=== PATIENT | male | born 1995 | race Two or more races ===

== ENCOUNTER 2017-09-19 01:58 | Emergency (ER) | payer OTHER ==
[2017-09-19 02:49] VITALS: BP 150/74; PULSE 88; TEMP 98.2; BMI 25.1
[2017-09-19] MEDS ORDERED: SULFAMETHOXAZOLE/TRIMETHOPRIM 800MG/160MG D.S. TABLET PO ONE (03:01)
[2017-09-19] MEDS ORDERED: CEPHALEXIN MONOHYDRATE 500 MG CAPSULE (UD) PO ONE (03:02)
--- NOTE | 2017-09-19 03:02 | PDOC ---
History of Present Illness - General Chief Complaint: Wound Stated Complaint: CYST ON BACK Time Seen by Provider: 09/19/17 02:33 History Source: Patient - History of Present Illness Initial Comments: 09/19/17 03:46 22-year-old male with no medical history presents to the emergency department complaining of an abscess to the gluteal fold/sacral region 3 days which increased in size and pain but denies fever, chills, nausea/vomiting, chest pain , shortness of breath, abdominal pains, flank pains, difficulty voiding/bowel movement. Patient states previous symptoms seen in the emergency department and had I&D. Patient states he never went to the surgeon to have a proper cystectomy. Timing/Duration: reports: other (x3d) Past History - Past Medical History Allergies/Adverse Reactions: Allergies Allergy/AdvReac Type Severity Reaction Status Date / Time No Known Allergies Allergy Verified 09/19/17 02:49 Home Medications: Ambulatory Orders Amoxicillin/Potassium Clav [Augmentin 875-125 Tablet] 1 each PO BID #13 tablet 08/16/16 Cephalexin Monohydrate [Keflex -] 500 mg PO Q8H #20 capsule 08/16/16 Cephalexin Monohydrate [Keflex -] 500 mg PO TID #15 capsule 09/19/17 Sulfamethoxazole/Trimethoprim [Bactrim Ds -] 1 tab PO BID #14 tablet 09/19/17 Asthma: Yes (albuterol inhaler) - Immunization History Immunization Up to Date: Yes - Suicide/Smoking/Psychosocial Hx Smoking Status: No Smoking History: Unknown if ever smoked Have you smoked in the past 12 months: No Number of Cigarettes Smoked Daily: 0 Information on smoking cessation initiated: No Hx Alcohol Use: No Drug/Substance Use Hx: No Substance Use Type: None Review of Systems - Review of Systems Able to Perform ROS?: Yes Comments:: 09/19/17 03:47 CONSTITUTIONAL: Absent: fever, chills, diaphoresis, generalized weakness, malaise, loss of appetite HEENT: Absent: rhinorrhea, nasal congestion, throat pain, throat swelling, difficulty swallowing, mouth swelling, ear pain, eye pain, visual Changes CARDIOVASCULAR: Absent: chest pain, loss of consciousness, palpitations, irregular heart rate, peripheral edema RESPIRATORY: Absent: cough, shortness of breath, dyspnea with exertion, orthopnea, wheezing, stridor, hemoptysis GASTROINTESTINAL: Absent: abdominal pain, abdominal distension, nausea, vomiting, diarrhea, constipation, melena, hematochezia GENITOURINARY: Absent: dysuria, frequency, urgency, hesitancy, hematuria, flank pain, genital pain MUSCULOSKELETAL: Absent: myalgia, arthralgia, joint swelling SKIN: Absent: rash, itching, pallor HEMATOLOGIC/IMMUNOLOGIC: Absent: easy bleeding, easy bruising, lymphadenopathy, frequent infections ENDOCRINE: Absent: unexplained weight gain, unexplained weight loss, heat intolerance, cold intolerance NEUROLOGIC: Absent: headache, focal weakness or paresthesias, dizziness, unsteady gait, seizure, mental status changes, bladder or bowel incontinence PSYCHIATRIC: Absent: anxiety, depression, suicidal or homicidal ideation, hallucinations. Is the patient limited Beninese proficient: No *Physical Exam - Vital Signs Last Vital Signs Temp Pulse Resp BP Pulse Ox 98.2 F 88 16 150/74 100 09/19/17 02:44 09/19/17 02:44 09/19/17 02:44 09/19/17 02:44 09/19/17 02:44 - Physical Exam Comments: 09/19/17 03:47 GENERAL: Well developed, well nourished. Awake and alert. No acute distress. HEENT: Normocephalic, atraumatic. PERRLA, EOMI. No conjunctival pallor. Sclera are non- icteric. Moist mucous membranes. Oropharynx is clear. NECK: Supple. Full ROM. No JVD. Carotid pulses 2+ and symmetric, without bruits. No thyromegaly. No lymphadenopathy. CARDIOVASCULAR: Regular rate and rhythm. No murmurs, rubs, or gallops. Distal pulses are 2+ and symmetric. PULMONARY: No evidence of respiratory distress. Lungs clear to auscultation bilaterally. No wheezing, rales or rhonchi. ABDOMINAL: Soft. Non-tender. Non-distended. No rebound or guarding. No organomegaly. Normoactive bowel sounds. Sacral rgion/gleteal midfold +abscess SKIN: Warm and dry. Normal capillary refill. No rashes. No jaundice. 09/19/17 03:50 Procedure: Mid sacral region/gluteal fold 3cm abscess/fluctulant Betadine prep/aseptic technique 1%lidocaine; 3cc #10 blade vertical incision ~10cc purulent abscess/drainage 09/16" packing Telfa 4x$ gauze Medical Decision Making - Medical Decision Making 09/19/17 03:53 22-year-old male without any medical history presents to the ER complaining of a gluteal fold abscess 3 days. I&D performed. Wound culture sent. Patient will be placed on Keflex and Bactrim. Packing placed and he is to return in 2 days for wound check/packing removal. *DC/Admit/Observation/Transfer Diagnosis at time of Disposition: Abscess of buttock - Discharge Dispostion Disposition: HOME Condition at time of disposition: Stable Admit: No - Prescriptions Prescriptions: Cephalexin Monohydrate [Keflex -] 500 mg PO TID #15 capsule Sulfamethoxazole/Trimethoprim [Bactrim Ds -] 1 tab PO BID #14 tablet - Referrals Referrals: Danny Guillen [Primary Care Provider] - - Patient Instructions Printed Discharge Instructions: Pilonidal Cyst Additional Instructions: Warm compresses edge warm soaks as often as possible for the next 48 hours Bactrim DS/Keflex as prescribed until completion packing removal in 48 hours with a wound check Tylenol as needed for pain Return back to the emergency department for severe/persistent or worsening symptoms - Post Discharge Activity
[2017-09-19] MEDS ORDERED: SULFAMETHOXAZOLE/TRIMETHOPRIM 800MG/160MG D.S. TABLET ONE (03:06)
[2017-09-19] MEDS ORDERED: CEPHALEXIN MONOHYDRATE 250 MG CAPSULE (FP) ONE (03:07)
== END 2017-09-19 04:05 | disposition home or self-care (01) ==
LOC: JER 01:58
PROC: 0J990ZZ Drainage of Buttock Subcutaneous Tissue and Fascia, Open Approach (ICD-10-PCS; principal; 2017-09-19)
DX: L02.31 Cutaneous abscess of buttock (principal)
CPT/HCPCS: 10160; 87070; 87076; 87205; 99281-25

== ENCOUNTER 2017-09-21 11:00 | Emergency (ER) | payer OTHER ==
[2017-09-21 11:07] VITALS: BP 141/69; PULSE 60; TEMP 98.3; BMI 26.1
--- NOTE | 2017-09-21 12:06 | PDOC ---
Suture Removal/Wound Check HPI - History of Present Illness Chief Complaint: Revisit,Wound Recheck Stated Complaint: REPACKAGING Time Seen by Provider: 09/21/17 11:10 History Source: Yes: Patient Date of Last ED visit: 09/19/17 - Previous ED Treatment Type of procedure performed on last visit: Yes: I&D of Abscess Tetanus Immunization: Yes: Up to Date Past History - Past Medical History Allergies/Adverse Reactions: Allergies Allergy/AdvReac Type Severity Reaction Status Date / Time No Known Allergies Allergy Verified 09/21/17 11:07 Home Medications: Ambulatory Orders Amoxicillin/Potassium Clav [Augmentin 875-125 Tablet] 1 each PO BID #13 tablet 08/16/16 Cephalexin Monohydrate [Keflex -] 500 mg PO Q8H #20 capsule 08/16/16 Cephalexin Monohydrate [Keflex -] 500 mg PO TID #15 capsule 09/19/17 Sulfamethoxazole/Trimethoprim [Bactrim Ds -] 1 tab PO BID #14 tablet 09/19/17 Asthma: Yes (albuterol inhaler) COPD: No - Immunization History Immunization Up to Date: Yes - Suicide/Smoking/Psychosocial Hx Smoking Status: No Smoking History: Never smoked Have you smoked in the past 12 months: No Number of Cigarettes Smoked Daily: 0 Information on smoking cessation initiated: No Hx Alcohol Use: No Drug/Substance Use Hx: No Substance Use Type: None Suture Removal/Wound Check PE - Physical Exam Laceration/Wound Check Symptoms: denies: Pain, Fever, Chills, Redness Location of Laceration/Wound: bilateral: Back (well healing tailbone abscess, no e/o reaccumulation) *Review of Systems - Review of Systems Constitutional: No: Chills, Fever Medical Decision Making - Medical Decision Making 09/21/17 12:03 22-year-old male history of recurrent pilonidal abscess, seen in ED for same 2 days ago, status post I&D and currently on Keflex and Bactrim with pending wound culture. Patient here for wound check today and states pain has significantly improved, no fever or chills. Wound well healing with no evidence of re-accumulation. Dressing replaced. Will dc to continue antibiotics. Reasons to return to ER discussed with patient 09/21/17 12:06 *DC/Admit/Observation/Transfer Diagnosis at time of Disposition: Wound check, abscess - Discharge Dispostion Disposition: HOME Condition at time of disposition: Good - Referrals - Patient Instructions Additional Instructions: Continue to take antibiotics as prescribed and return to ER if symptoms worsen - Post Discharge Activity
== END 2017-09-21 12:11 | disposition home or self-care (01) ==
LOC: JERFT 11:00
DX: Z48.01 Encounter for change or removal of surgical wound dressing (principal); L05.01 Pilonidal cyst with abscess
CPT/HCPCS: 99281-25

== ENCOUNTER 2018-01-30 07:44 | Emergency (ER) | payer OTHER ==
[2018-01-30 07:52] VITALS: TEMP 99; BMI 24.3
[2018-01-30] MEDS ORDERED: morphine CARPU-JECT 4 MG/1 ML DISP.SYRIN IVPUSH ONE (07:58)
[2018-01-30] MEDS ORDERED: SODIUM CHLORIDE 1,000 ML IV STA ×2 (07:58→10:30)
[2018-01-30] MEDS ORDERED: ONDANSETRON 4 MG/2 ML VIAL IVPUSH ONE (07:58)
[2018-01-30] MEDS ORDERED: TAMSULOSIN HCL 0.4 MG CAP.ER.24H (FP) PO ONE (07:59)
--- NOTE | 2018-01-30 08:05 | PDOC ---
History of Present Illness - General Chief Complaint: Pain, Acute Stated Complaint: PAIN VOMITING Time Seen by Provider: 01/30/18 07:54 History Source: Patient Exam Limitations: No Limitations - History of Present Illness Initial Comments: 01/30/18 08:00 Patient is a 22M with no significant medical history here today complaining of sudden onset flank pain radiating to the groin. Onset was this morning from sleep. Patient reports nausea and vomiting. Last bowel movement last night. Denies pain and difficultly with urination. Patient took 800mg ibuprofen one hour prior to presentation. Denies history of kidney stones. Patient states that he had one episode of a similar pain about a week ago, but that resolved spontaneously. Denies testicular pain. Past History - Past Medical History Allergies/Adverse Reactions: Allergies Allergy/AdvReac Type Severity Reaction Status Date / Time No Known Allergies Allergy Verified 01/30/18 07:49 Home Medications: Ambulatory Orders NK [No Known Home Medication] 01/30/18 Asthma: Yes (albuterol inhaler) COPD: No - Immunization History Immunization Up to Date: Yes - Suicide/Smoking/Psychosocial Hx Smoking Status: No Smoking History: Never smoked Have you smoked in the past 12 months: No Number of Cigarettes Smoked Daily: 0 Hx Alcohol Use: No Drug/Substance Use Hx: No Substance Use Type: None Review of Systems - Review of Systems Comments:: 01/30/18 08:05 GENERAL/CONSTITUTIONAL: No fever or chills. No weakness. HEAD, EYES, EARS, NOSE AND THROAT: No change in vision. No sore throat. CARDIOVASCULAR: No chest pain or shortness of breath RESPIRATORY: No cough, wheezing, or hemoptysis. GASTROINTESTINAL: Positive for nausea, vomiting. Negative for diarrhea or constipation. GENITOURINARY: No dysuria, frequency, or change in urination. MUSCULOSKELETAL: No joint or muscle swelling or pain. No neck or back pain. SKIN: No rash NEUROLOGIC: No headache, vertigo, loss of consciousness, or change in strength/ sensation. HEMATOLOGIC/LYMPHATIC: No anemia, easy bleeding, or history of blood clots. ALLERGIC/IMMUNOLOGIC: No hives or skin allergy. *Physical Exam - Vital Signs Last Vital Signs Temp Pulse Resp BP Pulse Ox 99 F 54 L 20 154/101 99 01/30/18 07:47 01/30/18 07:47 01/30/18 07:47 01/30/18 07:47 01/30/18 07:47 - Physical Exam Comments: 01/30/18 08:05 GENERAL: Awake, alert, and fully oriented, walking around, moving, can't get comfortable HEAD: No signs of trauma, normocephalic, atraumatic EYES: PERRLA, EOMI, sclera anicteric, conjunctiva clear ENT: Auricles normal inspection, hearing grossly normal, nares patent, oropharynx clear without exudates. Moist mucosa NECK: Normal ROM, supple, no lymphadenopathy, JVD, or masses LUNGS: No distress, speaks full sentences, clear to auscultation bilaterally HEART: Regular rate and rhythm, normal S1 and S2, no murmurs, rubs or gallops, peripheral pulses normal and equal bilaterally. ABDOMEN: Soft, R CVA tenderness. No guarding, no rebound. No masses EXTREMITIES: Normal inspection, Normal range of motion, no edema. No clubbing or cyanosis. NEUROLOGICAL: Cranial nerves II through XII grossly intact. Normal speech, normal gait, no focal sensorimotor deficits SKIN: Warm, Dry, normal turgor, no rashes or lesions noted. : Normal external genitalia, two testicles, no high riding testicle, no evidence of torsion, nontender ED Treatment Course - LABORATORY CBC & Chemistry Diagram: 01/30/18 08:02 01/30/18 08:21 - RADIOLOGY Radiology Studies Ordered: Category Date Time Status SPIRAL- RENAL-STONE CT [CT] Stat CT Scan 01/30/18 07:59 Ordered Medical Decision Making - Medical Decision Making 01/30/18 08:06 Patient is 22M here today with flank pain. Vital signs stable. Patient likely has kidney stones. Will evaluate with CBC, CMP, Lipase, UA, spiral CT. 01/30/18 11:43 Laboratory Tests 01/30/18 01/30/18 08:02 08:21 WBC 17.3 H Hgb 16.3 Plt Count 287 BUN 11 Creatinine 1.1 CBC shows leukocytosis. CMP reassuring. CT shows 6mm obstructing stone. Patient yet to give urine sample. 01/30/18 13:05 UA negative. Patient reassessed, states that symptoms have completely resolved. Will give urology follow up. Discharged with return precautions and motrin. *DC/Admit/Observation/Transfer Diagnosis at time of Disposition: Kidney stone - Discharge Dispostion Disposition: HOME Condition at time of disposition: Good Decision to Admit order: No - Referrals Referrals: Mayur Banks [Primary Care Provider] - Darrell Maldonado MD [Staff Physician] - - Patient Instructions Printed Discharge Instructions: DI for Kidney Stones Additional Instructions: Please return if you have any new, worsening or concerning symptoms. Please follow up with a urologist this week. A number has been provided for you in your paperwork. Please take 600mg of ibuprofen for pain up to 3 times per day. Do not take this for more than one week. - Post Discharge Activity
[2018-01-30 08:30] LABS: BASO % 0.4 % (0-2.0); HEMATOCRIT 48.2 % (35.4-49); HEMOGLOBIN 16.3 GM/dL (11.7-16.9); LYMPH % 15.7 % (8-40); MCHC 33.8 g/dl (32.0-35.9); MEAN CELL VOLUME 88.7 fl (80-96); MEAN PLT VOLUME 7.7 fl (7.5-11.1); MONO % 7.4 % (3.8-10.2); NEUT % 75.5 % (42.8-82.8); PLATELET COUNT 287 K/MM3 (134-434); RBC 5.43 M/mm3 (4.00-5.60); RDW 12.8 % (11.9-15.9); WHITE BLOOD COUNT 17.3 K/mm3 (4.0-10.0)
[2018-01-30 09:58] LABS: ALBUMIN 4.1 g/dl (3.4-5.0); ALK PHOS 73 U/L (45-117); ANION GAP 9 (8-16); BILIRUBIN,TOTAL 0.4 mg/dL (0.2-1.0); BLOOD UREA NITROGEN 11 mg/dL (7-18); CALCIUM 8.9 mg/dL (8.5-10.1); CHLORIDE 106 mmol/L (98-107); CO2 27 mmol/L (21-32); CREATININE 1.1 mg/dL (0.7-1.3); GLUCOSE,RANDOM 126 mg/dL (74-106); POTASSIUM 3.7 mmol/L (3.5-5.1); SGOT/AST 22 U/L (15-37); SGPT/ALT 26 U/L (12-78); SODIUM 142 mmol/L (136-145); TOT PROT 7.3 g/dl (6.4-8.2)
[2018-01-30 10:02] LABS: LIPASE 251 U/L (73-393)
--- NOTE | 2018-01-30 11:29 | PDOC ---
Attending Attestation - Resident Resident Name: Abiel Ascencio - ED Attending Attestation I have performed the following: I have examined & evaluated the patient, The case was reviewed & discussed with the resident, I agree w/resident's findings & plan, Exceptions are as noted - HPI HPI: 01/30/18 11:26 22 yo male n pmh here with c/;o right flank pain sharp intermittent radiating to groin. no test pain. did have assoc n/v x 1. started this am. no f/c no urinary complaints similar pain one week ago. - Physicial Exam PE: 01/30/18 11:27 awake alert lungs clear bilaterally. heart rrr nomrg. abd softnt nd . no cva tenderness. ext wwp . skin warm and dry. alert oriented x 3, gait normal. - Medical Decision Making 01/30/18 11:27 differential: renal colic, appendicitis less likely, uti pyelo plan ivf, pain control ct a/p reassess. pt with 6mm prox ureteral stone. will d/w urology. awaiting ua. flomax. likely outpt pain control and followup with urology.
[2018-01-30 12:38] LABS: URINE APPEARANCE CLEAR; URINE BILIRUBIN NEGATIVE (<2.0 mg/dL); URINE COLOR YELLOW; URINE GLUCOSE (UA) 1+ (NEGATIVE); URINE KETONE NEGATIVE (NEGATIVE); URINE LEUK ESTERASE NEGATIVE (NEGATIVE); URINE NITRITE NEGATIVE (NEGATIVE); URINE PROTEIN NEGATIVE (NEGATIVE); URINE UROBILINOGEN NEGATIVE mg/dL (0.2-1.0)
[2018-01-30 12:47] LABS: EPI CELLS RARE /HPF (FEW); URINE HYALINE CAST 1 /lpf; URINE MUCUS RARE
[2018-01-30 13:30] VITALS: BP 127/79; PULSE 58
== END 2018-01-30 13:30 | disposition home or self-care (01) ==
LOC: JER 07:44
PROC: 3E0333Z Introduction of Anti-inflammatory into Peripheral Vein, Percutaneous Approach (ICD-10-PCS; principal; 2018-01-30)
DX: N20.0 Calculus of kidney (principal); J45.909 Unspecified asthma, uncomplicated
CPT/HCPCS: 36415; 74176; 80053; 81003; 81015; 83690; 85025; 87086; 96361; 96374; 96375; 99283-25; J7030

== ENCOUNTER 2018-09-04 02:53 | Emergency (ER) | payer OTHER ==
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
[2018-09-04 03:56] VITALS: BP 134/86; PULSE 89; TEMP 98.1; BMI 27.3
== END 2018-09-04 05:05 | disposition home or self-care (01) ==
LOC: JER 02:53
DX: S80.02XA Contusion of left knee, initial encounter (principal); V43.52XA Car driver injured in collision with other type car in traffic accident, initial encounter; Y92.415 Exit ramp or entrance ramp of street or highway as the place of occurrence of the external cause; W22.11XA Striking against or struck by driver side automobile airbag, initial encounter; Y93.89 Activity, other specified; Y99.8 Other external cause status
CPT/HCPCS: 73502-TC-LT-FY; 73560-TC-LT-FY; 99281-25

== ENCOUNTER 2020-12-23 22:12 | Emergency (ER) | payer OTHER ==
[2020-12-23 22:22] VITALS: BP 158/97; PULSE 89; BMI 28.1
[2020-12-23 22:23] VITALS: TEMP 98.2
[2020-12-23] MEDS ORDERED: LIDOCAINE HCL 2% (20ML MULTI-DOSE VIAL) ONE (22:53)
== END 2020-12-24 00:07 | disposition home or self-care (01) ==
LOC: JER 22:12
PROC: 0H96XZZ Drainage of Back Skin, External Approach (ICD-10-PCS; principal; 2020-12-23)
DX: L05.91 Pilonidal cyst without abscess (principal)
CPT/HCPCS: 87070; 87205; 99283-25

== ENCOUNTER 2020-12-24 22:49 | Emergency (ER) | payer OTHER ==
[2020-12-24 22:53] VITALS: BP 154/89; PULSE 104; TEMP 98; BMI 28.1
== END 2020-12-25 00:29 | disposition home or self-care (01) ==
LOC: JER 22:49
DX: Z48.00 Encounter for change or removal of nonsurgical wound dressing (principal)
CPT/HCPCS: 99281-25

== ENCOUNTER 2020-12-27 18:53 | Emergency (ER) | payer OTHER ==
[2020-12-27 19:03] VITALS: BP 131/77; PULSE 94; TEMP 99.3; BMI 27.3
== END 2020-12-27 20:33 | disposition home or self-care (01) ==
LOC: JER 18:53 → JERFT 18:53
DX: Z48.00 Encounter for change or removal of nonsurgical wound dressing (principal)
CPT/HCPCS: 99281-25

== ENCOUNTER 2021-01-31 04:06 | Day surgery (SDC) | payer OTHER ==
[2021-01-29 15:25] VITALS: BMI 26.6
[2021-01-31] MEDS ORDERED: PROPOFOL 20 ML ONE ×2 (12:28→13:06)
[2021-01-31] MEDS ORDERED: MIDAZOLAM HCL 2 MG/2 ML SINGLE DOSE VIAL ONE (12:29)
[2021-01-31] MEDS ORDERED: ceFAZolin SODIUM 1 GM VIAL ONE (12:50)
[2021-01-31] MEDS ORDERED: METHYLENE BLUE 50 MG/10 ML AMPUL ONE (12:52)
[2021-01-31] MEDS ORDERED: METHYLENE BLUE 1% 10 MG/1 ML VIAL NR ONE (13:04)
[2021-01-31] MEDS ORDERED: BUPIVACAINE HCL/PF 0.5% (5MG/ML) 10 ML VIAL IJ ONE (13:05)
[2021-01-31] MEDS ORDERED: LIDOCAINE HCL 1%, 10 MG/ML (20ML VIAL) INF ONE (13:05)
[2021-01-31] MEDS ORDERED: LIDOCAINE HCL/PF 2% SDV 5ML VIAL ONE (13:06)
[2021-01-31] MEDS ORDERED: oxyCODONE HCL 5 MG TABLET PO PRN (13:32)
[2021-01-31] MEDS ORDERED: IBUPROFEN 800 MG/8 ML IJ IVPB PRN (13:32)
[2021-01-31] MEDS ORDERED: ONDANSETRON 4 MG/2 ML VIAL IVPUSH PRN (13:32)
[2021-01-31] MEDS ORDERED: LACTATED RINGERS SOLUTION 1,000 ML IV SCH (13:45)
[2021-01-31] MEDS ORDERED: ACETAMINOPHEN 1000 MG/100 ML VIAL (NON FORMULARY) IVPB PRN (14:24)
[2021-01-31 15:06] VITALS: TEMP 98
[2021-01-31 18:10] VITALS: BP 150/70; PULSE 56
== END 2021-01-31 19:25 | disposition home or self-care (01) ==
LOC: JASU-SURG 04:06
PROVIDERS: ATTEND Surgery
PROC: 0JB90ZZ Excision of Buttock Subcutaneous Tissue and Fascia, Open Approach (ICD-10-PCS; principal; 2021-01-31 10:00)
DX: L05.92 Pilonidal sinus without abscess (principal); L05.91 Pilonidal cyst without abscess
CPT/HCPCS: 88304-TC; 94760; J0131; Q9968

== ENCOUNTER 2021-06-02 19:04 | Emergency (ER) | payer OTHER ==
[2021-06-02 19:15] VITALS: BP 131/74; PULSE 87; TEMP 98.3; BMI 27.3
[2021-06-02 22:03] LABS: SYPHILIS W/ RPR CONF NON-REACTIVE (NONREACTIVE)
[2021-06-02 22:32] LABS: HIV INTERPRETATION NEGATIVE (NEGATIVE)
== END 2021-06-02 22:07 | disposition home or self-care (01) ==
LOC: JERFT 19:04
DX: L30.9 Dermatitis, unspecified (principal)
CPT/HCPCS: 36415; 86780; 87389; 87491; 87591; 99283-25; C9803; U0003; U0005

== ENCOUNTER 2021-11-17 04:21 | Day surgery (SDC) | payer OTHER ==
[2021-11-13 18:14] VITALS: BMI 27.3
[2021-11-17] MEDS ORDERED: MIDAZOLAM HCL 2 MG/2 ML SINGLE DOSE VIAL ONE (11:01)
[2021-11-17] MEDS ORDERED: LIDOCAINE HCL/PF 2% SDV 5ML VIAL ONE (11:01)
[2021-11-17] MEDS ORDERED: SUCCINYLCHOLINE CHLORIDE 200 MG/10 ML SYRINGE ONE (11:02)
[2021-11-17] MEDS ORDERED: PROPOFOL 20 ML ONE ×2 (11:42)
[2021-11-17 13:12] VITALS: BP 128/85; PULSE 62; TEMP 98.2
== END 2021-11-17 13:10 | disposition home or self-care (01) ==
LOC: JASU-SURG 04:21
PROVIDERS: ATTEND Urology
PROC: 0TF4XZZ Fragmentation in Left Kidney Pelvis, External Approach (ICD-10-PCS; principal; 2021-11-17 10:30)
DX: N20.0 Calculus of kidney (principal)

== ENCOUNTER 2024-07-10 04:13 | Day surgery (SDC) | payer OTHER ==
[2024-07-06 16:04] VITALS: BMI 28.8
[2024-07-10 12:30] VITALS: RESP 16
[2024-07-10] MEDS ORDERED: MIDAZOLAM HCL 2 MG/2 ML SINGLE DOSE VIAL ONE (13:36)
[2024-07-10] MEDS ORDERED: PROPOFOL 20 ML ONE ×2 (13:41→13:51)
[2024-07-10 14:22] VITALS: TEMP 97.6
[2024-07-10 15:28] VITALS: BP 132/87; PULSE 52
== END 2024-07-10 14:45 | disposition home or self-care (01) ==
LOC: JASU-SURG 04:13
PROVIDERS: ATTEND Urology
PROC: 0TF4XZZ Fragmentation in Left Kidney Pelvis, External Approach (ICD-10-PCS; principal; 2024-07-10 13:44)
DX: N20.0 Calculus of kidney (principal)